=== PATIENT | male | born 1965 | race Caucasian/White ===

== ENCOUNTER 2017-05-09 09:06 | Emergency (ER) | payer BC ==
[~2017-05-09] VITALS: Ht 185.4 cm; Wt 119.9 kg
[~2017-05-09 09:06] MED LIST: ALEVE220 M2 PO; ALEVE220 MG PO; ASPIR 8181 M1 PO; ASPIRIN325 MG PO; ATORVASTATIN CA20 MG PO; ATORVASTATIN CA40 MG PO; BABY ASPIRIN81 M1 PO; BACTRIM,SEPT1 TABLET PO; BRILINTA90 MG PO; CLOPIDOGREL75 MG PO; CRESTOR20 MG PO; DEXILANT60 MG PO; Ecotrin PO; FIORINAL; FLEXERIL5 MG PO; LISINOPRIL10 MG PO; LOPRESSOR25 MG PO; LOW DOSE ASPIRI81 M1 PO; METOPROLOL SUCC25 MG PO; MOBIC7.5 MG PO; MOTRIN800 MG PO; NAPROSYN500 MG PO; NEXIUM40 MG PO; NITROSTAT0.3 MG SL; NORCO 5/3251 TABLET PO; Nitrostat,NitroQuick SL; OMEPRAZOLE40 M1 PO; PEPCID20 MG PO; PREVACID30 MG PO; TRAMADOL HCL50 MG PO; ULTRAM50 MG PO
[2017-05-09] MEDS ORDERED: MOTRIN800 MG PO (11:34)
[2017-05-09] MEDS ORDERED: ULTRAM50 MG PO (11:34)
[2017-05-09 12:02] VITALS: BP 126/77
== END 2017-05-09 12:43 | disposition home or self-care (01) ==
LOC: EME 09:06
DX: M25.512 Pain in left shoulder (principal)
CPT/HCPCS: 73030; 99281; 99284; J1885

== ENCOUNTER 2017-07-26 11:38 | Emergency (ER) | payer BC ==
[~2017-07-26] VITALS: Ht 182.9 cm; Wt 117.1 kg
[2017-07-26 12:18] LABS: HEMATOCRIT 45.4 % (38.0-50.0); HEMOGLOBIN 15.6 G/DL (12.5-16.6); MCH 29.3 PG (29.0-34.0); MCHC 34.4 G/DL (30.0-36.0); MCV 85.3 FL (86-99); PLATELET COUNT 234 K/uL (156-360); RBC DIS.WIDTH-CV 13.1 % (11.8-14.6); RBC DIS.WIDTH-SD 40.7 % (39-53); RED BLOOD COUNT 5.32 M/uL (4.00-5.50)
[2017-07-26 12:46] LABS: CHLORIDE 108 MEQ/L (99-109); CREATININE 0.9 MG/DL (0.6-1.3); GFR ESTIMATE (CALCULATED) > 59 mL/min/ (58.99-99999); GLUCOSE 110 mg/dL (70-99); POTASSIUM 4.2 MEQ/L (3.7-5.4); SODIUM 140 MEQ/L (136-147); UREA NITROGEN (BUN) 15 mg/dL (9-23)
[2017-07-26 12:49] LABS: TROP-I INTERPRETATION NEGATIVE; TROPONIN-I < 0.01 ng/mL (0.0-0.30)
[2017-07-26 15:35] LABS: TROP-I INTERPRETATION NEGATIVE; TROPONIN-I < 0.01 ng/mL (0.0-0.30)
[2017-07-26 16:06] VITALS: BP 135/86
== END 2017-07-26 16:08 | disposition home or self-care (01) ==
LOC: EME 11:38
PROVIDERS: Emergency Medicine Emergency Medical Services
DX: R07.89 Other chest pain (principal); K29.00 Acute gastritis without bleeding; K21.9 Gastro-esophageal reflux disease without esophagitis; R94.31 Abnormal electrocardiogram [ECG] [EKG]; I25.2 Old myocardial infarction; M19.90 Unspecified osteoarthritis, unspecified site; J45.909 Unspecified asthma, uncomplicated; F41.9 Anxiety disorder, unspecified; F32.9 Major depressive disorder, single episode, unspecified; Z79.82 Long term (current) use of aspirin; Z90.49 Acquired absence of other specified parts of digestive tract; Z86.79 Personal history of other diseases of the circulatory system; Z95.5 Presence of coronary angioplasty implant and graft; Z98.52 Vasectomy status
CPT/HCPCS: 71046; 80048; 84484; 85027; 93005; 99281; 99285

== ENCOUNTER 2017-10-05 15:26 | Emergency (ER) | payer BC ==
[~2017-10-05] VITALS: Ht 185.4 cm; Wt 104.5 kg
[2017-10-05 16:11] LABS: HEMATOCRIT 40.1 % (38.0-50.0); HEMOGLOBIN 13.6 G/DL (12.5-16.6); MCH 29.8 PG (29.0-34.0); MCHC 33.9 G/DL (30.0-36.0); MCV 87.9 FL (86-99); PLATELET COUNT 215 K/uL (156-360); RBC DIS.WIDTH-CV 13.2 % (11.8-14.6); RBC DIS.WIDTH-SD 42.4 % (39-53); RED BLOOD COUNT 4.56 M/uL (4.00-5.50); WHITE BLOOD COUNT 8.4 K/uL (4.1-10.2)
[2017-10-05 16:30] LABS: D-DIMER ELISA < 150.00 ng/mLDDU (<230)
[2017-10-05 16:45] LABS: ALBUMIN 3.7 G/DL (3.2-4.8); ALKALINE PHOSPHATASE 74 IU/L (3-129); ALT (GPT) 10 IU/L (3-49); AST (GOT) 11 IU/L (2-34); CHLORIDE 108 MEQ/L (99-109); CREATININE 0.8 MG/DL (0.6-1.3); GFR ESTIMATE (CALCULATED) > 59 mL/min/ (58.99-99999); GLUCOSE 94 mg/dL (70-99); LIPASE 10 U/L (1.0-51.0); POTASSIUM 3.9 MEQ/L (3.7-5.4); SODIUM 141 MEQ/L (136-147); TOTAL BILIRUBIN 0.3 MG/DL (0.0-1.0); TOTAL PROTEIN 5.6 G/DL (6.4-8.3); UREA NITROGEN (BUN) 13 mg/dL (9-23)
[2017-10-05 16:47] LABS: TROP-I INTERPRETATION NEGATIVE; TROPONIN-I 0.01 ng/mL (0.0-0.30)
[2017-10-05 19:21] LABS: TROP-I INTERPRETATION NEGATIVE; TROPONIN-I < 0.01 ng/mL (0.0-0.30)
[2017-10-05 20:42] VITALS: BP 132/85
== END 2017-10-05 20:55 | disposition home or self-care (01) ==
LOC: EME 15:26
PROVIDERS: Emergency Medicine; Physician Assistant
DX: R07.9 Chest pain, unspecified (principal); K21.9 Gastro-esophageal reflux disease without esophagitis; J45.909 Unspecified asthma, uncomplicated; E78.5 Hyperlipidemia, unspecified; I25.2 Old myocardial infarction; F32.9 Major depressive disorder, single episode, unspecified; F41.9 Anxiety disorder, unspecified; M19.90 Unspecified osteoarthritis, unspecified site; Z95.5 Presence of coronary angioplasty implant and graft; Z79.82 Long term (current) use of aspirin
CPT/HCPCS: 71046; 80048; 80076; 83690; 84484; 85027; 85379; 93005; 99281; 99285

== ENCOUNTER 2017-10-07 16:37 | Emergency (ER) | payer BC ==
[~2017-10-07] VITALS: Ht 182.9 cm; Wt 108.3 kg
[2017-10-07 17:36] LABS: HEMATOCRIT 45.5 % (38.0-50.0); MCH 29.8 PG (29.0-34.0); MCHC 34.3 G/DL (30.0-36.0); MCV 86.8 FL (86-99); PLATELET COUNT 230 K/uL (156-360); RBC DIS.WIDTH-CV 13.1 % (11.8-14.6); RED BLOOD COUNT 5.24 M/uL (4.00-5.50); WHITE BLOOD COUNT 9.5 K/uL (4.1-10.2)
[2017-10-07 17:37] LABS: HEMOGLOBIN 15.6 G/DL (12.5-16.6)
[2017-10-07 17:40] LABS: ALBUMIN 4.2 g/dL (3.2-4.8); CHLORIDE 107 mEq/L (99-109); POTASSIUM 4.2 mEq/L (3.7-5.4); SODIUM 140 mEq/L (136-147)
[2017-10-07 17:42] LABS: GLUCOSE 90 mg/dL (70-99)
[2017-10-07 17:43] LABS: TOTAL PROTEIN 6.9 g/dL (6.4-8.3)
[2017-10-07 17:44] LABS: TOTAL BILIRUBIN 0.4 mg/dL (0.0-1.0)
[2017-10-07 17:46] LABS: ALKALINE PHOSPHATASE 94 IU/L (3-129); CREATININE 0.9 mg/dL (0.6-1.3); GFR ESTIMATE (CALCULATED) > 59 mL/min/ (58.99-99999)
[2017-10-07 17:47] LABS: UREA NITROGEN (BUN) 12 mg/dL (9-23)
[2017-10-07 17:48] LABS: AST (GOT) 15 IU/L (2-34)
[2017-10-07 17:49] LABS: ALT (GPT) 15 IU/L (3-49)
[2017-10-07 17:50] LABS: LIPASE 5 U/L (1.0-51.0)
[2017-10-07 20:39] LABS: APPEARANCE CLOUDY ((CLEAR)); BILIRUBIN NEGATIVE; BLOOD NEGATIVE; COLOR YELLOW ((YELLOW)); GLUCOSE (STRIP) NEGATIVE; KETONES NEGATIVE; LEUKOCYTES NEGATIVE; NITRITE NEGATIVE; PROTEIN (STRIP) 30; SPECIFIC GRAVITY 1.026 (1.000-1.030)
[2017-10-07 20:57] LABS: BACTERIA 1+ /HPF; EPITHELIAL CELLS NONE SEEN /HPF; MUCUS 4+ /LPF; RED BLOOD CELLS 0-5 /HPF (0-5); WHITE BLOOD CELLS 0-5 /HPF (0-5)
[2017-10-07] MEDS ORDERED: PHENERGAN25 MG PR (22:54)
[2017-10-07] MEDS ORDERED: PROMETHAZINE HC25 M1 PO (22:54)
[2017-10-07 23:36] VITALS: BP 118/73
[2017-10-10 13:41] LABS: STOOL OCCULT BLD 1ST SPECIMEN NEGATIVE
== END 2017-10-07 23:37 | disposition home or self-care (01) ==
LOC: EME 16:37
PROVIDERS: Physician Assistant
DX: K80.70 Calculus of gallbladder and bile duct without cholecystitis without obstruction (principal); F32.9 Major depressive disorder, single episode, unspecified; F41.9 Anxiety disorder, unspecified; I25.2 Old myocardial infarction; K21.9 Gastro-esophageal reflux disease without esophagitis; E78.5 Hyperlipidemia, unspecified; J45.909 Unspecified asthma, uncomplicated; Z95.5 Presence of coronary angioplasty implant and graft; Z79.82 Long term (current) use of aspirin
CPT/HCPCS: 74177; 80053; 81003; 82272; 83690; 85027; 99281; 99285; C9113; J2405; J7030; S0028

== ENCOUNTER 2017-11-12 15:40 | Emergency (ER) | payer OTHER ==
[~2017-11-12] VITALS: Ht 182.9 cm; Wt 107.4 kg
[~2017-11-12 15:40] MED LIST changes: +PHENERGAN25 MG PR; +PROMETHAZINE HC25 M1 PO
[2017-11-12 17:59] LABS: HEMATOCRIT 42.2 % (38.0-50.0); HEMOGLOBIN 14.6 G/DL (12.5-16.6); MCH 29.8 PG (29.0-34.0); MCHC 34.6 G/DL (30.0-36.0); MCV 86.1 FL (86-99); PLATELET COUNT 207 K/uL (156-360); RBC DIS.WIDTH-SD 40.7 % (39-53); WHITE BLOOD COUNT 10.5 K/uL (4.1-10.2)
[2017-11-12 18:08] LABS: CHLORIDE 105 mEq/L (99-109); POTASSIUM 4.3 mEq/L (3.7-5.4); SODIUM 139 mEq/L (136-147)
[2017-11-12 18:10] LABS: GLUCOSE 100 mg/dL (70-99); TOTAL PROTEIN 6.7 g/dL (6.4-8.3)
[2017-11-12 18:12] LABS: TOTAL BILIRUBIN 0.5 mg/dL (0.0-1.0)
[2017-11-12 18:13] LABS: ALKALINE PHOSPHATASE 82 IU/L (3-129)
[2017-11-12 18:14] LABS: GFR ESTIMATE (CALCULATED) > 59 mL/min/ (58.99-99999)
[2017-11-12 18:15] LABS: AST (GOT) 13 IU/L (2-34); UREA NITROGEN (BUN) 13 mg/dL (9-23)
[2017-11-12 18:17] LABS: ALT (GPT) 14 IU/L (3-49); LIPASE 5 U/L (1.0-51.0)
[2017-11-12 19:22] LABS: TROP-I INTERPRETATION NEGATIVE; TROPONIN-I < 0.01 ng/mL (0.0-0.30)
[2017-11-12 20:16] LABS: APPEARANCE CLEAR ((CLEAR)); BILIRUBIN NEGATIVE; BLOOD NEGATIVE; COLOR YELLOW ((YELLOW)); GLUCOSE (STRIP) NEGATIVE; KETONES NEGATIVE; LEUKOCYTES NEGATIVE; NITRITE NEGATIVE; PROTEIN (STRIP) NEGATIVE; SPECIFIC GRAVITY 1.047 (1.000-1.030); UCUL ADDED? NO; UROBILINOGEN 0.2 MG/DL (0.2-1.0)
[2017-11-12 21:09] LABS: TROP-I INTERPRETATION NEGATIVE; TROPONIN-I < 0.01 ng/mL (0.0-0.30)
[2017-11-12] MEDS ORDERED: BENTYL10 MG PO (21:50)
[2017-11-12] MEDS ORDERED: ZOFRAN ODT4 MG PO (21:50)
[2017-11-12 22:04] VITALS: BP 124/78
[2017-11-12] MEDS ORDERED: ZANTAC150 MG PO (22:05)
== END 2017-11-12 22:07 | disposition home or self-care (01) ==
LOC: EME 15:40
PROVIDERS: Physician Assistant Medical
DX: R10.13 Epigastric pain (principal); K82.0 Obstruction of gallbladder; D35.02 Benign neoplasm of left adrenal gland; R91.8 Other nonspecific abnormal finding of lung field; K21.9 Gastro-esophageal reflux disease without esophagitis; I25.2 Old myocardial infarction; E78.5 Hyperlipidemia, unspecified; M19.90 Unspecified osteoarthritis, unspecified site; F41.9 Anxiety disorder, unspecified; F32.9 Major depressive disorder, single episode, unspecified; Z79.82 Long term (current) use of aspirin; Z95.5 Presence of coronary angioplasty implant and graft; Z98.52 Vasectomy status; Z86.79 Personal history of other diseases of the circulatory system; Z87.19 Personal history of other diseases of the digestive system; Z90.49 Acquired absence of other specified parts of digestive tract
CPT/HCPCS: 74177; 80053; 81003; 83690; 84484; 85027; 93005; 99281; 99285; J7030